=== PATIENT | female | born 1945 | race Caucasian/White ===

== ENCOUNTER 2020-12-27 21:52 | Emergency (ER) | payer BC ==
[~2020-12-27] VITALS: Ht 157.5 cm; Wt 63.0 kg
--- NOTE | 2020-12-27 22:02 | NUR ---
Dr. Green at bedside for MSE.
[2020-12-27] MEDS ORDERED: lipitor PO (22:07)
[2020-12-27] MEDS ORDERED: synthroid PO (22:07)
--- NOTE | 2020-12-27 22:16 | NUR ---
Patient discharged to home in stable condition. Written and verbal after care instructions given. Patient verbalizes understanding of instructions. Stressed follow up or return to ER for worsening s/s.
[2020-12-27 22:17] VITALS: BP 149/54
== END 2020-12-27 22:17 | disposition home or self-care (01) ==
LOC: ER 21:54
DX: R21 Rash and other nonspecific skin eruption (principal); E78.5 Hyperlipidemia, unspecified; E03.9 Hypothyroidism, unspecified; Z79.899 Other long term (current) drug therapy; Z79.890 Hormone replacement therapy
CPT/HCPCS: A4663